=== PATIENT | female | born 2000 | race Caucasian/White ===

== ENCOUNTER 2024-03-29 14:53 | Outpatient (AMB) | payer OTHER, SELFPAY ==
--- NOTE | 2024-03-29 14:58 | MHC.PC.OV ---
Vital Signs 03/29/24 15:00 Height 5 ft 3 in Weight 131 lb 2 oz BMI 23.2 BP 112/72 Blood Pressure Location Lt brachial Position Sitting Pulse 102 H Pulse Source Pulse Oximeter Temp 96.9 F Temp Source Skin Pulse Oximetry (%) 98 Oxygen Delivery Method Room Air Intake Visit Reasons: establish care Intake Note: Patient is a new patient here to establish care for Asthma, Anxiety, Depression, Minor Paranoia, Bipolar. Transferring care from [facility] ([facility]). Medical records have not been requested and have not received. Pt decline flu shot today. Triple Valve Tester Required: No Business Management Intern: Present (Mother and infant) Accompanied by: Mother Allergies morphine Allergy (Severe, Verified 03/29/24 15:19) Swelling Medication List - Last Reconciled 03/29/24 by Jennifer Venegas PA-C No Known Home Meds Tobacco use date assessed: 03/29/24 Dental Screening Dental Screen Date: 03/29/24 Did you have a dental visit in the last 12 months?: No Did you have a dental problem in the last 6 months where you did not have access to dental care?: No Was dental information given to patient?: No HPI establish care HPI Details 23-year-old female coming to the office for the 1st time. Patient tells us today she struggles with depression and anxiety and did not answer the PHQ-9 and martita 7 honestly. She would like to be medicated for these concerns and has a history of bipolar disorder and was previously on Seroquel. [facility] [place] and has a appointment later this week with them. She has a history of asthma and uses her albuterol as inhaler as needed and more frequently with allergies or with sickness. [facility] Surgical History History of cholecystectomy Family History Other Mental health disorder Substance use disorder Social History Housing: Apartment Alcohol intake: current Alcohol intake frequency: a few times a month Patient Tobacco Use Status: Current everyday Tobacco user Tobacco use type: Cigarette Cigarette Packs Per Day: 0.5 Cigarettes Per Day: 10 e-Cigarette/Vaping Use: Never Used Second Hand Smoke Exposure: Yes Substance Use Type: Marijuana service: No Current occupational status: unemployed Cognitive needs: No Hearing needs: No Vision needs: No Female Reproductive History Menstrual control method: none Total pregnancies: 10 Full term: 4 Premature: 1 Ab induced: 1 Ab spontaneous: 4 Questionnaire PHQ-9 Over the last 2 weeks, how often have you been bothered by any of the following problems? 1. Little interest or pleasure in doing things: not at all 2. Feeling down, depressed, or hopeless: not at all 3. Trouble falling or staying asleep, or sleeping too much: not at all 4. Feeling tired or having little energy: not at all 5. Poor appetite or overeating: not at all 6. Feeling bad about yourself - or that you are a failure or have let yourself or your family down: not at all 7. Trouble concentrating on things, such as reading the newspaper or watching television: not at all 8. Moving or speaking so slowly that other people could have noticed. Or the opposite - being so fidgety or restless that you have been moving around a lot more than usual: not at all 9. Thoughts that you would be better off or of hurting yourself in some way: not at all Total score: 0 Depression Screening Interpretation: Negative Depression Screening Done: Yes Source: Developed by Drs. Flip Godinez, Sarai Mcfadden, Jamarcus Perera and colleagues, with an educational lino from [employer]. Thrive Questionnaire Date Thrive assessed: 03/29/24 I am a: Patient What is your living situation today?: I choose not to answer this question Within the past 12 months, did the food you bought not last and you didn't have the money to get more?: I choose not to answer this question Within the past 12 months, did you worry whether your food would run out before you got money to buy more?: I choose not to answer this question Do you have trouble paying for medicines?: I choose not to answer this question Do you have trouble getting transportation to medical appointments?: I choose not to answer this question Do you have trouble paying your heating and electricity bill?: I choose not to answer this question Do you have trouble taking care of your child, family member or friend?: I choose not to answer this question Do you have trouble with day-to-day activities such as bathing, preparing meals, shopping, managing finances, etc.?: I choose not to answer this question Are you currently unemployed and looking for a job?: I choose not to answer this question Are you interested in more education?: I choose not to answer this question Please select the resources that you would like help with: None Currently or been in a relationship where the following occur: I choose not to answer THRIVE Score: 0 AUDIT C Alcohol Use Questionnaire (AUDIT-C) 1. How often do you have a drink containing alcohol?: Never Total Score: 0 MARTITA-7 AMB Questionnaire MARTITA-7 Date MARTITA - 7 assessed: 03/29/24 Feeling nervous, anxious, or on edge: 0 = Not at all Not being able to stop or control worryin = Not at all Worrying too much about different things: 0 = Not at all Trouble relaxin = Not at all Being so restless that it is hard to sit still: 0 = Not at all Becoming easily annoyed or irritable: 0 = Not at all Feeling afraid as if something awful might happen: 0 = Not at all Total MARTITA-7 score (0-4 normal; 5-9 mild; 10-14 moderate; 15-21 severe): 0 Source: Developed by Drs. Flip Godinez, Sarai Mcfadden, Jamarcus Perera and colleagues, with an educational lino from [employer]. MARTITA-7 Assessment Billing MARTITA-7 Assessment Tool: MARTITA-7 Assessment 69241 Review of Systems Const Denies body aches, Denies fatigue, Denies fever(s), Denies frequent falls, Denies headache(s) and Denies weakness Eyes Reports no additional complaints and Denies change in vision ENT Denies dizziness, Denies facial pain, Denies headache(s) and Denies nasal congestion Card Denies chest pain, Denies syncope, Denies irregular heart rhythm, Denies leg edema, Denies lightheadedness and Denies dyspnea Resp Denies cough and Denies dyspnea GI Denies constipation, Denies dyspepsia, Denies diarrhea, Denies nausea and Denies vomiting Denies urinary frequency, Denies dysuria, Denies urinary hesitancy and Denies urinary urgency Musc Denies back pain and Denies myalgias Skin/Breast Reports system reviewed and no additional complaints, except as documented Neuro Denies dizziness, Denies syncope, Denies frequent falls, Denies headache(s) and Denies weakness Psych Reports no additional complaints Endo Denies fatigue Physical exam (Primary Care) Vital Signs: Last Vital Signs Temp 96.9 F 03/29/24 15:00 Pulse 102 H 03/29/24 15:00 BP 112/72 03/29/24 15:00 Pulse Ox 98 03/29/24 15:00 Oxygen Delivery Method Room Air 03/29/24 15:00 BMI result Body Mass Index 23.2 Tobacco/Smoking Status: Tobacco use Status Tobacco use date assessed 03/29/24 03/29/24 15:11 Patient Tobacco Use Status Current everyday Tobacco 03/29/24 15:11 Tobacco use type Cigarette 03/29/24 15:11 e-Cigarette/Vaping Use Never Used 03/29/24 15:11 Are you ready to quit: No Tobacco cessation counseling provided: Yes Items discussed: Nicotine replacement Relapse Prevention: discussed the importance of a supportive environment and discussed dietary, exercise and/or lifestyle changes Number of minutes spent counselin CPT code: 23777 - 4-10 Minutes PHQ-9: PHQ-9 Score PHQ-9: Total score 0 03/29/24 15:11 Depression Screening Interpretation: Negative Thrive Assessment: Date of Thrive Assessment Date Thrive assessed 03/29/24 03/29/24 15:11 Currently or been in a relationship where the following occur: I choose not to answer Const General: cooperative, healthy appearing, comfortable and no acute distress Orientation/consciousness: patient oriented x3 HENMT Head: Yes normocephalic Ears: hearing grossly normal bilaterally General nose exam: Normal external nose present Eyes General: appearance normal, both eyes and all related structures Conjunctivae: conjunctivae normal Neck Neck: Yes full ROM and Yes no lymphadenopathy Resp Effort & Inspection: normal respiratory effort Auscultation: clear to auscultation bilaterally, no crackles, no rales, no rhonchi and no wheezes Cardio Rate: regular rate Rhythm: regular rhythm Skin General skin exam: no rashes or lesions noted Neuro General: patient oriented x3 Gait exam (Neuro): Normal gait present Extrem General: Yes normal to inspection, Yes full ROM and No edema Psych Affect: normal affect Attitude: cooperative Insight: Good insight present (Psych) Judgement: Good judgement present (Psych) Coding Level of Care Code New Pt Level 4 (62644) Diagnoses Asthma J45.909 Tobacco abuse Z72.0 Anxiety F41.9 Depression F32.A Blurred vision H53.8 Bipolar disorder F31.9 Additional Codes MARTITA-7 Assessment Billing - MARTITA-7 Assessment Tool: MARTITA-7 Assessment 66217 ([id number]) Vital Signs *Quality* - CPT code: 86745 - 4-10 Minutes ([id number]) Assessment & Plan Assessment & Plan (1) Asthma: Code(s): J45.909 - Unspecified asthma, uncomplicated Category: Medical Plan: Asthma currently controlled on present medications. Continue on albuterol as needed. Avoid triggers such as allergies. (2) Tobacco abuse: Code(s): Z72.0 - Tobacco use Category: Medical Plan: Smoking cigarettes and the use of tobacco can be harmful. We discussed the importance of stopping and options to aid in smoking cessation. Declines nicotine replacement therapy. (3) Anxiety: Code(s): F41.9 - Anxiety disorder, unspecified Category: Medical Plan: Patient having history of anxiety states she would like a medication for this concern. Referral placed to outpatient psych clinic for medical management and counseling referral placed to [facility]. (4) Depression: Code(s): F32.A - Depression, unspecified Category: Medical Plan: Patient having history of depression states she would like a medication for this concern. Referral placed to outpatient psych clinic for medical management and counseling referral placed to [facility]. (5) Blurred vision: Code(s): H53.8 - Other visual disturbances Category: Medical Plan: Patient complaining of occasional blurry vision has a history of glasses and has not been wearing them. Referral placed to [facility] eye care. (6) Bipolar disorder: Code(s): F31.9 - Bipolar disorder, unspecified Category: Medical Plan: Patient tells us she has a history of bipolar disorder was previously treated with Seroquel. Referral placed to outpatient psych clinic for establishment of diagnosis and treatment. Referral placed to [facility] for counseling. Plan Ordered for updated blood work and we will follow up in 3 months for annual exam and follow up on diagnoses. This note was constructed using voice recognition software. While every effort has been made to ensure accuracy and voltage tester, still areas may have been included sometimes these areas may affect the content or meeting of the given symptoms. Total time spent caring for the patient today was 30 minutes. This includes time spent before the visit reviewing the chart, time spent during the visit, and time spent after the visit and documentation. Orders: Orders Vitamin B12 and Folate Today Z00.00 - Encounter for general adult medical examination without abnormal findings Vitamin D 25-OH Total Today Z00.00 - Encounter for general adult medical examination without abnormal findings Comprehensive Met. Panel Today Z00.00 - Encounter for general adult medical examination without abnormal findings TSH reflex Free T4 Today F32.A - Depression, unspecified, Z00.00 - Encounter for general adult medical examination without abnormal findings Free T4 (Free Thyroxine) Today F32.A - Depression, unspecified, Z00.00 - Encounter for general adult medical examination without abnormal findings Complete Blood Count Auto Diff Today Z00.00 - Encounter for general adult medical examination without abnormal findings Referrals Counseling Referral F32.A - Depression, unspecified, F41.9 - Anxiety disorder, unspecified Optometry Referral H53.8 - Other visual disturbances Psychiatry Outpatient Consultation Service F32.A - Depression, unspecified, F41.9 - Anxiety disorder, unspecified Medications: New albuterol sulfate 90 mcg/actuation 1 inh inhalation QID PRN 6.7 grams 0RF shortness of breath or wheezing
[2024-03-29 15:00] VITALS: BP 112/72; PULSE 102; TEMP 36.1; O2SAT 98; BMI 23.2
== END 2024-03-29 15:42 | disposition home or self-care (01) ==
DX: J45.909 Unspecified asthma, uncomplicated (principal); Z72.0 Tobacco use; F41.9 Anxiety disorder, unspecified; F32.A Depression, unspecified; H53.8 Other visual disturbances; F31.9 Bipolar disorder, unspecified

== ENCOUNTER → 2024-03-29 14:53 | Outpatient (BNVA) | payer OTHER, SELFPAY | DX: F41.9 Anxiety disorder, unspecified (principal); F31.9 Bipolar disorder, unspecified; F17.210 Nicotine dependence, cigarettes, uncomplicated; H53.8 Other visual disturbances; J45.909 Unspecified asthma, uncomplicated | CPT/HCPCS: 96127; 99202 ==